=== PATIENT | female | born 1945 | race Caucasian/White ===

== ENCOUNTER 2017-06-23 08:41 | Inpatient (IN) | payer MEDICARE, OTHER ==
[2017-06-23] VITALS (9 sets, daily range): BP systolic 99–175; BP diastolic 59–93; PULSE 61–74; RESP 16–20; O2SAT 95–100
[~2017-06-23] VITALS: Ht 167.6 cm; Wt 74.8 kg
[~2017-06-23 08:41] MED LIST: ASPI-973 PO; CHOL5000 PO; CRAN400T4 PO; METO25TA6 PO; OMEP20CA11 PO; SIMV40TA5 PO; SPIR25TA3 PO
--- NOTE | 2017-06-23 08:46 | ED.REPORT ---
HPI-Abd Pain F 40 and Over Date of Service Jun 23, 2017 ED Provider: Antony Watters MD The pt is a 72 y/o female w/ a hx of multiple UTIs, HTN, hyperlipidemia, an appendectomy, and a partial hysterectomy presenting to the ED complaining of R flank pain onset 9 hours ago. She describes the pain as 10/10 severity, w/o radiation, and reports nothing helping to relieve the pain. She is also experiencing nausea and vomited earlier this morning. Denies fever, dysuria, or increased urinary frequency. The pt took an extra strength Tylenol at roughly 0415 this morning. She was sent here from urgent care. Nursing Notes Stated Complaint: POSS KIDNEY INFECTION Chief Complaint: R flank pain Nursing Notes Reviewed: Yes ([employer] not reconciled) Allergies: Coded Allergies: Penicillins (Verified Allergy, Severe, hives, 05/19/16) Sulfa (Sulfonamide Antibiotics) (Verified Allergy, Severe, hives, 05/19/16) erythromycin base (Verified Allergy, Severe, nausea and vomiting, 05/19/16) Scheduled Aspirin (Aspirin) 81 Mg Tablet 81 MG PO DAILY Metoprolol Tartrate (Metoprolol Tartrate) 25 Mg Tablet 25 MG PO BID Omeprazole (Omeprazole) 20 Mg Capsule.dr 20 MG PO DAILY Simvastatin (Simvastatin) 40 Mg Tablet 40 MG PO HS Spironolactone (Spironolactone) 25 Mg Tablet 25 MG PO DAILY Miscellaneous Medications Cholecalciferol (Vitamin D3) (Vitamin D3) 5,000 Unit Capsule 5,000 UNIT PO Cranberry Fruit (Cranberry) 400 Mg Tablet 400 MG PO General Time Seen by MD: 08:45 Chief Complaint Flank pain right Hx Obtained From: Patient Arrived By: Walk-in Sudden in Onset?: Yes Onset Occurred: 9 - 12 hours ago Symptom Duration: Since onset Progression since Onset: Gradually worsening Recent Healthcare: No recent hospitalization, Recent doctor visit Similar Sx Previous: No Past Medical History Past Medical History skin cancer Reports: Hyperlipidemia, Hypertension Past Surgical History Reports: Appendectomy, Hysterectomy (Partial ) Smoking History Unknown if Ever Smoker Social History Other Social History: Good social support Ambulatory Status Independent Review of Systems GI: Reports: Nausea, Vomiting Female: Reports: Flank pain (R sided ) Complete sys rev & neg: except as marked. Physical Exam Vital Signs Vital Signs (First) Date Time Temp Pulse Resp B/P Pulse Ox O2 Delivery O2 Flow Rate FiO2 06/23/17 08:43 36.8 74 18 175/93 100 Room Air Initial VS: Reviewed Head / Eyes: Atraumatic, Normocephalic, PERRL ENT: Mucous membranes moist, Conjunctiva normal, No scleral icterus Neck: Supple, Non-tender, Full range of motion Extremities: Vascular intact, Neuro intact, No swelling, No tenderness Skin: Warm, Dry, No cyanosis Neurologic: Alert, Oriented, Nonfocal Psychiatric: Mood/affect normal, Behavior normal, Normal thought content General/Constitutional: Awake, Alert Pt is in significant colicky pain Respiratory / Chest: Atraumatic, Breath sounds NL, Breath sounds = bilat Cardiovascular: Heart rate NL, Regular rhythm, Heart sounds NL Abdomen: Soft Back: Full range of motion Interpretation & Diagnostics PROCEDURE: CT KUB IMPRESSION: 1. Obstructive right nephrolithiasis at the ureterovesicular junction. This finding was discussed with Dr. Watters at 10:14 AM on 06/23/17. 2. No other acute intra-abdominal findings. The appendix is not visualized; however there are no ancillary findings to suggest acute appendicitis. 3. 5 mm groundglass nodule. [address] recommended. Dictated by: Claudette Prince M.D. on 06/23/2017 at 10:11 Approved by: Claudette Prince M.D. on 06/23/2017 at 10:18 Lab Results Interpretation Result Diagram: 06/23/17 0900 06/23/17 0900 Test 06/23/17 09:00 06/23/17 10:07 White Blood Count 9.6th/mm3 (3.8-10.1) Red Blood Count 4.11mil/mm3 (3.90-5.20) Hemoglobin 12.5g/dL (12.0-15.6) Hematocrit 36.7% (35.0-46.0) Mean Corpuscular Volume 89.3fL (81-100) Mean Corpuscular Hemoglobin 30.4pg (27.0-35.0) Mean Corpuscular Hemoglobin Concent 34.1% (32.0-37.0) Red Cell Distribution Width 12.9% (12.3-15.4) Platelet Count 251bil/L (150-400) Neutrophils (%) (Auto) 62.6% (40-74) Lymphocytes (%) (Auto) 30.2% (14-46) Monocytes (%) (Auto) 6.5% (4-12) Eosinophils (%) (Auto) 0.2% (0-5) Basophils (%) (Auto) 0.4% (0-3) Sodium Level 133mEq/L (134-144) Potassium Level 4.6mEq/L (3.5-5.2) Chloride Level 95mEq/L (97-108) Carbon Dioxide Level 20mmol/L (18-29) Blood Urea Nitrogen 17mg/dL (8-27) Creatinine 0.99mg/dL (0.57-1.00) Estimat Glomerular Filtration Rate 79mL/min (>59) Glucose Level 120mg/dL (60-99) Calcium Level 9.5mg/dL (8.5-10.1) Total Bilirubin 0.3mg/dL (0.0-1.2) Aspartate Amino Transf (AST/SGOT) 20U/L (0-50) Alanine Aminotransferase (ALT/SGPT) 15U/L (0-32) Alkaline Phosphatase 130U/L (25-165) Total Protein 8.3g/dL (6.4-8.4) Albumin 4.5g/dL (3.4-5.0) Hold Thorne Top Tube Received (Received) Urine Color Yellow (YELLOW) Urine Appearance Clear (CLEAR,HAZY) Urine pH 8.0 (5.0-8.0) Urine Specific [place] 1.021 (1.003-1.035) Urine Protein Negativemg/dL (NEG,TRACE) Urine Glucose (UA) Negativemg/dL (NEGATIVE) Urine Ketones Negativemg/dL (NEGATIVE) Urine Occult Blood Trace (NEGATIVE) Urine Nitrite Negative (NEGATIVE) Urine Bilirubin Negative (NEGATIVE) Urine Urobilinogen Normalmg/dL (NORMAL) Urine Leukocyte Esterase Trace (NEGATIVE) Urine RBC 3-10/hpf (0-2) Urine WBC 6-10/hpf (0-5) Urine Epithelial Cells Few/hpf (NONE-MOD) Urine Crystals None seen (NONE SEEN) Urine Bacteria Few/hpf (NONE-FEW) Urine Hyaline Casts None/lpf (NONE) Urine Granular Casts None seen (NONE SEEN) Urine Waxy Casts None seen (NONE SEEN) Urine Red Blood Cell Casts None seen (NONE SEEN) Urine White Blood Cell Casts None seen (NONE SEEN) Urine Mucus None seen (None Seen) Urine Trichomonas None seen (NONE SEEN) Urine Yeast None (NONE SEEN) Urinalysis Comment None Urine Culture Reflexed Indicated Lab Results Interpretation: CBC normal limits CMP normal UA positive blood Re-Eval/Medical Decision Med Decision/Clinical Course This is a pleasant 72-year-old female presents with acute onset of right flank pain that started last night. She does not have a previous history of kidney stones. The pain is been severe, intermittently colicky, it is so severe's to be covered by nausea and vomiting. This been no fever or dysuria. Urgent care but appeared in severe pain, so was referred over the [facility]. Urine dip was positive for blood. On arrival she is in significant discomfort, but her abdomen is soft and nontender without clinical evidence of peritonitis. He is placed received titrated pain medicines-she reports some relief but inadequate and associated with drowsiness with the Dilaudid. She underwent a CT KUB reveals a large stone in the right UVJ, with severe right hydronephrosis. She continued to have ongoing pain despite medication, received Toradol after renal function was normal, and had tamsulosin added. She is interested in hospitalization due to ongoing and persistent discomfort, as well as she is improved-she still complains of severe pain. Talked to the urologist wishes to give her more time we might be able to turn her around, which we did for several hours-for the patient remains persistently symptomatic and requests hospitalization. The plan is admission for pain control. The patient be maintained nothing by mouth after midnight as there is a possibility, but not definite plan for intervention tomorrow. Mirna Truong will consult. Source of Hx: Old records Re-Evaluation/Progress #1: Time of Eval: 10:44 Re-Evaluation/Progress Note: Rechecked pt and discussed CT results. Re-Evaluation/Progress #2: Time of Eval: 11:13 Re-Evaluation/Progress Note: Rechecked pt and discussed plan for further treatment. Re-Evaluation/Progress #3: Time of Eval: 12:19 Re-Evaluation/Progress Note: Pt rechecked. Informed pt of need for admission. Pt understands and agrees with plan for admission. All questions addressed. Consultation : Referral / Consult Name: Garett Sorensen MD Consulted With: Hospitalist Call Returned at: 13:12 Body Former: Will see patient, Agrees with eval, Agrees with plan, Accepts admit Differential Diagnosis: Positive: Urinary tract infection, Negative: Abdominal aortic aneurysm, Acute abdominal pain, Esophageal rupture , Pancreatitis, Pelvic inflam disease, Peptic ulcer disease, Postop complication Counseled Regarding: Diagnosis, Lab results, Need for admission Discharge & Departure Primary Impression: Kidney stone Additional Impression: Hydronephrosis of right kidney Disposition: ADMITTED TO HOSPITAL Discharge Condition All VS Reviewed: Yes Condition: Stable Referrals: Keegan Mcgee DO (PCP) Scribe Attestation Portions of this note were transcribed by Mat Montanez. I, Dr. Watters personally performed the history, physical exam and medical decision-making; I reviewed and confirmed the accuracy of the information in the transcribed note. copies to: Keegan Mcgee Matthew F MD Jun 23, 2017 08:46 Mat Montanez Jun 23, 2017 09:41
[2017-06-23] MEDS ORDERED: Ondansetron 2 mg/mL 2 mL Inj IVPUSH ONE (08:50)
[2017-06-23] MEDS: HYDROmorphone 0.5 mg/0.5 mL iSecure Syringe IVPUSH PRN ×3 (09:05→13:37)
[2017-06-23 09:17] LABS: BASOPHILS % (AUTO) 0.4 % (0-3); EOSINOPHILS % (AUTO) 0.2 % (0-5); MONOCYTES % (AUTO) 6.5 % (4-12); Mean Corpuscular Hemoglobin 30.4 pg (27.0-35.0); Mean Corpuscular Volume 89.3 fL (81-100); NEUTROPHILS % (AUTO) 62.6 % (40-74); Platelet Count 251 bil/L (150-400)
--- NOTE | 2017-06-23 10:19 | DRSVH ---
PROCEDURE: CT KUB ([id number]) INDICATIONS: R Flank pain TECHNIQUE: Noncontrast 5 mm thick sections acquired from the diaphragms to the symphysis. 5 mm thick coronal an d sagittal reformats were then performed. For radiation dose reduction, the following was used: aut omated exposure control, adjustment of mA and/or kV according to patient size. COMPARISON: None. FINDINGS: Image quality: Excellent. Lung bases: No acute airspace opacities. There is a 5 mm diameter groundglass nodule at the left lung base. Heart size is normal. Urinary system: Both kidneys are normal size. There is moderate right hydronephrosis and trace right perinephric fat stranding. Right ureter is markedly dilated throughout its course. A 3 mm in diamete r by 8mm long calculus is present at the right ureterovesicular junction (series 2, image 79). No lef t hydronephrosis, hydroureter, ureterolithiasis, or nephrolithiasis. Other solid organs: Liver and spleen are normal in size. Gallbladder is unremarkable. Pancreas is normal in contours. No adrenal nodules. Peritoneum and bowel: Unenhanced bowel loops demonstrate normal wall thickness and caliber. The appe ndix is not visualized; however there is no discrete right lower quadrant fluid or fat stranding to s uggest acute appendicitis. No free fluid or air. Nodes and vessels: No retroperitoneal or mesenteric adenopathy by size criteria. Aorta and inferior vena cava are normal in caliber. There are scattered atheromatous calcifications throughout the aor ta and iliac arteries bilaterally. Abdominal wall: No ventral hernias. Pelvis: No free pelvic fluid. No inguinal hernias or adenopathy. Bones: No suspicious bony lesions. No vertebral body compression fractures. A bone island is prese nt within the L5 vertebral body unchanged from the study from 2006. IMPRESSION: 1. Obstructive right nephrolithiasis at the ureterovesicular junction. This finding was discussed with Dr. Watters at 10:14 AM on 06/23/17. 2. No other acute intra-abdominal findings. The appendix is not visualized; however there are no anci llary findings to suggest acute appendicitis. 3. 5 mm groundglass nodule. [address] recommended. Dictated by: Claudette Prince M.D. on 06/23/2017 at 10:11 Approved by: Claudette Prince M.D. on 06/23/2017 at 10:18
[2017-06-23 10:54] LABS: APPEARANCE,URINE CLEAR (CLEAR,HAZY); COLOR,URINE YELLOW (YELLOW); OCCULT BLOOD,URINE TRACE (NEGATIVE); UROBILINOGEN,URINE NORMAL (NORMAL)
[2017-06-23] MEDS ORDERED: Alum-Mag Hydrox-Simeth 30 mL Suspension PO PRN (13:55)
[2017-06-23] MEDS ORDERED: Polyethylene Glycol (PEG) 17 Gm Powder PO PRN (13:55)
[2017-06-23] MEDS ORDERED: CYAN10008 PO (14:11)
[2017-06-23] MEDS ORDERED: LOSA25TA21 PO (14:11)
--- NOTE | 2017-06-23 15:00 | NUR ---
Assumed Care Assumed care of pt today; c/o tolerable pain in R flank area, no pain meds requested at this time. C/O nausea, IV Zofran offered to which pt states "nausea is resolving." A&Ox3, up to BR with 1 person asst as pt is not steady on her feet and c/o dizziness when up. Encouraged pt to use her call light for needs and to not get up without assistance, to which she agreed. VSS, RA, IV NS 100mls/hr started. Care ongoing.
[2017-06-23] MEDS: 0.9% Sodium Chloride 1,000 ML IV SCH ×2 (15:50→23:52)
--- NOTE | 2017-06-23 16:18 | PCM.HPMED ---
Subjective Date of Service Jun 23, 2017 Primary Provider: Admitting Physician: Garett Sorensen MD Primary Care Physician: Keegan Mcgee DO Attending Physician: Garett Sorensen MD Admit Status: From the Emergency Department, Full Admit, Admit to [facility] Team Chief Complaint: Right flank pain/10hrs History of Present Illness: 72 yo pleasant lady with PMH multiple UTIs, hypertension,HLD,h/o CAD s/p angioplasty 1991 presented to emergency room due to right flank pain of 9hrs. Patient states she woke up with sudden onset right-sided flank pain at 1 AM this morning. Pain is severe/worst pain she ever had , initially intermittent but now less and continuous . Nonradiating. Denies hematuria or dysuria. Denies fever. she also had nausea and 2 episodes of vomiting. ED course: in pain,BP 175/90, exam and labs unremarkable otherwise CT KUB Obstructive right nephrolithiasis at the ureterovesicular junction. ketorolac,zofran,dilaudid and tamsulin given Urology consulted by ED and plan for cystoscopy possibly tomorrow Review of Systems: Comprehensive review of systems performed, pertinent positives and negatives included in history of present illness Allergies Coded Allergies: Penicillins (Verified Allergy, Severe, hives, 05/19/16) Sulfa (Sulfonamide Antibiotics) (Verified Allergy, Severe, hives, 05/19/16) erythromycin base (Verified Allergy, Severe, nausea and vomiting, 05/19/16) Home Medications Aspirin (Aspirin) 81 Mg Tablet 81 MG PO DAILY Metoprolol Tartrate (Metoprolol Tartrate) 12.5 Mg PO hs Omeprazole (Omeprazole) 20 Mg Capsule.dr 20 MG PO DAILY Simvastatin (Simvastatin) 40 Mg Tablet 40 MG PO HS Spironolactone (Spironolactone) 25 Mg Tablet 12.5 MG PO DAILY Losartan 12.5 mg by mouth daily Recently started on vitamin B12 pills ,dose unknown Miscellaneous Medications Cholecalciferol (Vitamin D3) (Vitamin D3) 5,000 Unit Capsule 5,000 UNIT PO Cranberry Fruit (Cranberry) 400 Mg Tablet 400 MG PO PMH History of Coronary angioplasty 1991, no stent Multiple UTIs 1-2x/year Hypertension Hyperlipidemia Surgical History Partial Hysterectomy Appendectomy Diagnostic Laparotomy for infertility before her second child Family History No family history of kidney stones Social History Hx Alcohol Use: No Hx Substance Use: No Hx Tobacco Use: No Smoking Status: Unknown if Ever Smoker Exam Vital Signs Vital Sign - Last Date Time Temp Pulse Resp B/P Pulse Ox O2 Delivery O2 Flow Rate FiO2 06/23/17 14:52 64 06/23/17 14:30 36.9 20 137/59 99 Room Air Exam Gen. patient is lying comfortably in hospital bed HEENT: Head is normocephalic atraumatic, Pupils equal and reactive, extraocular movements intact, Lungs clear to auscultation bilaterally Heart regular rate and rhythm without murmurs gallops or rubs Abdomen soft nontender without hepatosplenomegaly, mild right flank tenderness Extremities pulses are present dorsalis pedis posterior tibialis and radial. tSkin is warm and dry there are no rashes, Psych alert and oriented to person place and time Neuro cranial nerves II through XII are grossly intact Lymph: There is no lymphadenopathy appreciated in the cervical supra infraclavicular regions : no ornelas Lab and Diagnostics Result Diagram: 06/23/17 0900 06/23/17 0900 X-Rays, CTs and MRIs PROCEDURE: CT KUB ([id number]) INDICATIONS: R Flank pain 1. Obstructive right nephrolithiasis at the ureterovesicular junction. This finding was discussed with Dr. Watters at 10:14 AM on 06/23/17. 2. No other acute intra-abdominal findings. The appendix is not visualized; however there are no ancillary findings to suggest acute appendicitis. 3. 5 mm groundglass nodule. [address] recommended. Dictated by: Claudette Prince M.D. on 06/23/2017 at 10:11 Assessment & Plan 72 yo pleasant lady with PMH multiple UTIs, hypertension,HLD,h/o CAD s/p angioplasty 1991 presented to emergency room due to right flank pain of 9hrs. # Right obstructive nephrolithiasis with hydronephrosis,poa,acute -pain control with Dilaudid, Zofran as needed for nausea -NS at 100ml/h -tamsulosin 0.4 mg daily -urology Dr Truong consulted by ED -npo after midnight - Patient able to take 2 flights of stairs without any chest pain or dyspnea.EKG and CXR ordered. # HTN,h/o CAD -Continue metoprolol, aspirin, losartan, spironolactone # HLD -Continue atorvastatin dvt ppx -hold hep sc ,pt preop full code Patient admitted under inpatient status with expected length of stay > 2 midnights for severity of present symptoms, complexities of treatment plan and risk for adverse events Pain Evaluation: Adequate Pain Control Resuscitation Status: CPR: Attempt Resuscitation copies to: Keegan Mcgee Melaku MD Jun 23, 2017 16:18
--- NOTE | 2017-06-23 17:16 | DRSVH ---
PROCEDURE: X-RAY CHEST ONE VIEW, PORTABLE ([id number]) INDICATIONS: preop TECHNIQUE: One view of the chest was acquired. COMPARISON: [facility], CT, CT KUB, 06/23/2017, 9:52. FINDINGS: Surgical changes and devices: None. Lungs and pleura: A subtle nodular radiopacity is present at the left lung base. It is unclear whethe r this represents the groundglass nodule visualized on the comparison CT from earlier today. The lung s are otherwise clear. Mediastinum: Mediastinal contours appear normal. Heart size is normal. Bones and chest wall: No suspicious bony lesions. Overlying soft tissues appear unremarkable. IMPRESSION: Left basilar nodule. Short interval followup recommended. Dictated by: Claudette Prince M.D. on 06/23/2017 at 17:13 Approved by: Claudette Prince M.D. on 06/23/2017 at 17:15
[2017-06-23] MEDS: Pantoprazole 20 mg ER24 Tablet PO SCH (17:30)
[2017-06-23] MEDS: Ondansetron 2 mg/mL 2 mL Inj IVPUSH PRN ×2 (19:37→20:41)
[2017-06-23] MEDS: HYDROmorphone 1 mg/mL Inj IVPUSH PRN ×2 (19:38→23:38)
--- NOTE | 2017-06-23 23:53 | NUR ---
Nausea Patient c/o nausea and vomiting after activity. Zofran administered, effective after second dose. Patient also c/o flank pain given K-pad and IV push Dilaudid, again effective after full mg dose. Spouse at bed side as patient visibly upset and uncomfortable. Care continues with intentional rounding.
[2017-06-24] VITALS (14 sets, daily range): BP systolic 94–166; BP diastolic 59–79; PULSE 65–105; RESP 12–18; O2SAT 96–100
[2017-06-24] MEDS: 0.9% Sodium Chloride 1,000 ML IV SCH ×2 (03:38→19:52)
[2017-06-24] MEDS: HYDROmorphone 1 mg/mL Inj IVPUSH PRN ×2 (03:39→07:31)
[2017-06-24 05:14] LABS: BASOPHILS % (AUTO) 0.2 % (0-3); EOSINOPHILS % (AUTO) 0.6 % (0-5); MONOCYTES % (AUTO) 8.4 % (4-12); Mean Corpuscular Hemoglobin 30.1 pg (27.0-35.0); Mean Corpuscular Volume 89.6 fL (81-100); NEUTROPHILS % (AUTO) 57.4 % (40-74); Platelet Count 199 bil/L (150-400)
[2017-06-24 05:38] LABS: Magnesium 1.9 mg/dL (1.6-2.6)
[2017-06-24] MEDS: Pantoprazole 20 mg ER24 Tablet PO SCH (06:45)
[2017-06-24] MEDS ORDERED: Ondansetron 2 mg/mL 2 mL Inj ONE (08:49)
[2017-06-24] MEDS ORDERED: Dexamethasone 4 mg/mL Inj ONE (08:49)
[2017-06-24] MEDS ORDERED: fentaNYL-PF 50 mCg/mL 2 mL Inj ONE ×2 (08:49→12:32)
[2017-06-24] MEDS ORDERED: Propofol 10,000 mCg/mL 20 mL Inj ONE (08:49)
--- NOTE | 2017-06-24 08:57 | PCM.HPSURG ---
Subjective Date of Service: Jun 24, 2017 Referring Provider: Admitting Physician: Garett Sorensen MD Primary Care Physician: Keegan Mcgee DO Attending Physician: Garett Sorensen MD Chief Complaint Ms Arnold is a 72 F with RIGHT flank pain. CT demonstrates RIGHT hydroureteronephrosis, moderate. - There is sand/debris at the RIGHT UVJ, not a discrete calculus She has never had urinary tract stones in the past to her knowledge. She notes that yesterday morning, around 1 AM, she had severe RIGHT lower quadrant pain. Presently, she has intermittently severe pain, controlled with pain medication. History of Present Illness Ms Arnold is a 72 F with RIGHT flank pain. CT demonstrates RIGHT hydroureteronephrosis, moderate. - There is sand/debris at the RIGHT UVJ, not a discrete calculus She has never had urinary tract stones in the past to her knowledge. She notes that yesterday morning, around 1 AM, she had severe RIGHT lower quadrant pain. Presently, she has intermittently severe pain, controlled with pain medication. Allergy Allergies: Coded Allergies: Penicillins (Verified Allergy, Severe, hives, 05/19/16) Sulfa (Sulfonamide Antibiotics) (Verified Allergy, Severe, hives, 05/19/16) erythromycin base (Verified Allergy, Severe, nausea and vomiting, 05/19/16) Social History Hx Alcohol Use: No Hx Substance Use: No Hx Tobacco Use: No PMH HEENT History History of ENT Problems?: No HEENT History: Denies:: Abnormal Airway Cataracts Difficult Intubation Dysphagia Hearing Problem Cardiovascular History History of Heart Problems?: Yes Cardiovascular History: Positive for:: Cardiac Surgery Hypertension Denies:: AICD Atrial Fibrillation Chest Pain Congestive Heart Failure Edema Heart Murmur Irregular Heartbeat Pacemaker Thrombophlebitis Valvular Heart Disease Other Cardiac History: HX: HYPERLIPIDEMIA Respiratory History of Respiratory Problem: No Respiratory History: Positive for:: Pneumonia Denies:: Asthma COPD Cough Hemoptysis Tuberculosis Neurological History Hx Neurologic Problems?: No Neurological History: Denies:: CVA Gastrointestinal History HX of GI Problems?: Yes Gastrointestinal History: Denies:: Cirrhosis Diverticulitis Gastroesphageal Reflux Hiatal Hernia Rectal Bleeding Genitourinary History Hx of Gu Problems?: Yes Genitourinary History: Positive for: Kidney Stones Urinary Tract Infection Denies: HX of Hemodialysis Female/Male History Reproductive History Female: Denies: Currently ? Endometriosis Pelvic Inflammatory DX Problems with Breasts? Skin History Skin History: Positive for:: History Skin Disorders? (skin cancer) Musculoskeletal History Hx Musculoskeletal Problems?: Yes Musculoskeletal History: Denies:: Back Injury Joint Replacement Musculoskeletal Trauma Psycho Social History Hx of Psycho/Social Problems?: No Psycho Social History: Denies:: Anxiety Hx Depression Other History Hx Any Other Health Problems?: Yes Other History: Positive for:: Cancer (SKIN) Hospitalization (SURGERY) Denies:: Endocrine Disease Thyroid Disease Diabetes: No Social History Hx Alcohol Use: NoHx Substance Use: NoHx Tobacco Use: No Smoking Status: Unknown if Ever Smoker H&P Surgical Exam Exam General: Alert, Cooperative, No Acute Distress Lungs: Normal Air Movement Abdomen: Soft, Other (TTP along the RIGHT abdomen) Extremities: Warm Neuro: Cranial Nerves 2-12 nl Assessment & Plan Assessment RIGHT hydroureteronephrosis and pain Plan: We reviewed her CT findings - I tab diagrams of the RIGHT kidney, ureter, bladder, urethra, and demonstrated the location of the relevant findings - She appears to have tiny stones/sediment in the distal ureter We discussed options - Surveillance - Ureterscopy (URS), stent We discussed the nature of ureteral stent as well as details of attendant risks and bother from the stent We reviewed potential benefits of the stent in terms of pain We discussed URS, nature of, risks in detail. Dispo: - Cysto, RIGHT URS, ureteral stent placement Resuscitation Status: CPR: Attempt Resuscitation Katiana Truong MD Jun 24, 2017 08:57 Katiana Truong MD Jun 24, 2017 08:57
--- NOTE | 2017-06-24 10:30 | PCM.HPANE ---
Patient Data Surgeon Admitting Provider:Garett Sorensen MD Attending Provider:Garett Sorensen MD Primary Care Physician:Keegan Mcgee DO Other Provider: Reason for Visit Poss Kidney Infection POSS KIDNEY INFECTION Ht/WT & BMI Height (Feet): 5 Height (Inches): 6.00 Weight (Kilograms): 74.800 Body Mass Index 26.50 Allergies Coded Allergies: Penicillins (Verified Allergy, Severe, hives, 05/19/16) Sulfa (Sulfonamide Antibiotics) (Verified Allergy, Severe, hives, 05/19/16) erythromycin base (Verified Allergy, Severe, nausea and vomiting, 05/19/16) Past Anesthesia History Anesthesia History: Denies:: Abnormal Airway, Anesthesia Reactions, Difficult Intubation, Fam Anesthesia Reaction, Fam Malignant Hypertherm, Malignant Hyperthermia Diabetes History Hx Diabetes?: No MRSA MRSA: No Medications Blood Thinner: Aspirin Reported Medications Losartan Potassium 25 Mg Xtvjyg95.5 Mg PO QAM 06/23/17 Cyanocobalamin (Vitamin B-12) (Vitamin B-12)1,000 Mcg Tablet1,000 Mcg PO QAM 06/23/17 Cholecalciferol (Vitamin D3) (Vitamin D3)5,000 Unit Capsule5,000 Unit PO QAM 07/05/15 Spironolactone 25 Mg Sgkgji78.5 Mg PO QAM #30 TABLET Ref 0 07/05/15 Simvastatin 40 Mg Amyibb59 Mg PO HS 30 Days Ref 0 07/05/15 Omeprazole 20 Mg Capsule.dr20 Mg PO QAM Ref 0 07/05/15 Metoprolol Tartrate 25 Mg Pumkcw42.5 Mg PO HS 30 Days Ref 0 07/05/15 Aspirin 81 Mg Dbifuv48 Mg PO QAM Ref 0 07/05/15 Discontinued Reported Medications Cranberry Fruit (Cranberry)400 Mg Ltxzqj201 Mg PO 07/06/15 History History of ENT Problems?: No HEENT History: Denies:: Abnormal Airway Cataracts Difficult Intubation Dysphagia Hearing Problem Denture Type: Full- Upper Partial- Lower Teeth Condition: Within Normal Limits Hx of Heart Problems?: Yes Cardiovascular History: Positive for:: Cardiac Surgery Hypertension Denies:: AICD Atrial Fibrillation Chest Pain Congestive Heart Failure Edema Heart Murmur Irregular Heartbeat Pacemaker Thrombophlebitis Valvular Heart Disease Other Cardiac History: HX: HYPERLIPIDEMIA Hx of Respiratory Problem?: No Respiratory History: Positive for:: Pneumonia Denies:: Asthma COPD Cough Hemoptysis Tuberculosis Hx Neurologic Problems?: No Neurological History: Denies:: CVA Hx of GI Problems?: Yes Hx of Problems?: Yes Genitourinary History: Positive for:: Kidney Stones Urinary Tract Infection Denies:: HX of Hemodialysis HX of Peritoneal Dialysis: No Female Hx: Denies:: Currently Endometriosis Pelvic Inflammatory Problems with Breasts? Skin History: Positive for:: History Skin Disorders? (skin cancer) Hx Musculoskeletal Problems?: Yes Musculoskeletal History: Denies:: Back Injury Joint Replacement Musculoskeletal Trauma Hx of Psycho/Social Problems?: No Psycho Social History: Denies:: Anxiety Hx Depression Hx Surgeries?: Yes ( EXPL LAP HYSTERECTOMY, TONSILLECTOMY, ANGIOPLASTY) Hx Any Other Health Problems?: Yes Other History: Positive for:: Cancer (SKIN) Hospitalization (SURGERY) Denies:: Endocrine Disease Thyroid Disease History Blood Transfusions: Positive for:: Accept Blood Products? Blood Transfusions (X 1) Denies:: Blood Transfuse Reaction Hx Diabetes: No Hx Alcohol Use: NoHx Substance Use: No Smoking Status: Unknown if Ever Smoker Have You Smoked inLast 12 mo: No Stop/Bang Risk Assessment Category Category 1A: Patient has history of documented sleep apnea, and HAS NOT received any narcotic, sedative or anesthesia administration during this stay. Category 1B: Patient has history of documented sleep apnea, and HAS received any narcotic , sedative or anesthesia administration during this stay Category 2: Patient has SUSPECTED Obstructive Sleep Apnea, and HAS received any narcotic , sedative or anesthesia administration during this stay. Category 3: Patient has SUSPECTED Obstructive Sleep Apnea and HAS NOT received narcotic, sedative or anesthesia administration during this stay. Category 4: Outpatient in Procedural Areas with known sleep apnea or who screen positive for High Risk via the STOP/BANG questionnaire. Exam Exam Vital Signs Vital Signs Date Time Temp Pulse Resp B/P Pulse Ox O2 Delivery O2 Flow Rate FiO2 06/24/17 09:53 65 06/24/17 09:21 36.6 67 16 113/64 98 Room Air 06/24/17 04:43 36.7 71 17 152/61 100 Room Air General Appearance: Alert, Oriented X3, Cooperative, Mild Distress HEENT/AIRWAY: MP 2 Lungs: Normal Air Movement Heart: Regular Rate/Rhythm Meds/Labs/Diagnostics Admission Meds Current Medications Ketorolac Tromethamine (Toradol Inj) 30 mg ONCE ONCE IVPUSH Last administered on 06/23/17 11:02; Start 06/23/17 at 10:50; Stop 06/23/17 at 10:51; Status DC Tamsulosin HCl 0.4 mg 0.4 mg ONCE ONCE PO Last administered on 06/23/17 11:02 ; Start 06/23/17 at 10:50; Stop 06/23/17 at 10:51; Status DC Sodium Chloride (Normal Saline) 1,000 ml @ 100 mls/hr Q10H IV Last administered on 06/24/17 03:38; Start 06/23/17 at 13:52 Tamsulosin HCl (Flomax) 0.4 mg DAILY PO Last administered on 06/24/17 08:11; Start 06/24/17 at 08:30 Aspirin (Ecotrin) 81 mg DAILY PO Last administered on 06/24/17 08:10; Start at 08:30 Metoprolol Tartrate (Lopressor) 12.5 mg HS PO Last administered on 06/23/17 19 :38; Start 06/23/17 at 21:00 Spironolactone (Aldactone) 12.5 mg DAILY PO Last administered on 06/24/17 08: 11; Start 06/24/17 at 08:30 Cholecalciferol (Vitamin D3) 5,000 unit DAILY PO Last administered on 17:32; Start 06/23/17 at 16:30 Cyanocobalamin (Vitamin B12) 1,000 mcg DAILY PO Last administered on 06/23/17 17:30; Start 06/23/17 at 16:31 Pantoprazole (Protonix) 20 mg 0630 PO Last administered on 06/24/17 06:45; Start 06/23/17 at 16:31 Atorvastatin Calcium (Lipitor) 20 mg DAILY PO Last administered on 06/24/17 08 :09; Start 06/24/17 at 08:30 Labs Test 06/23/17 09:00 06/23/17 10:07 06/24/17 04:53 Hold Thorne Top Tube Received (Received) Urine Color Yellow (YELLOW) Urine Appearance Clear (CLEAR,HAZY) Urine pH 8.0 (5.0-8.0) Urine Specific [place] 1.021 (1.003-1.035) Urine Protein Negativemg/dL (NEG,TRACE) Urine Glucose (UA) Negativemg/dL (NEGATIVE) Urine Ketones Negativemg/dL (NEGATIVE) Urine Occult Blood Trace (NEGATIVE) Urine Nitrite Negative (NEGATIVE) Urine Bilirubin Negative (NEGATIVE) Urine Urobilinogen Normalmg/dL (NORMAL) Urine Leukocyte Esterase Trace (NEGATIVE) Urine RBC 3-10/hpf (0-2) Urine WBC 6-10/hpf (0-5) Urine Epithelial Cells Few/hpf (NONE-MOD) Urine Crystals None seen (NONE SEEN) Urine Bacteria Few/hpf (NONE-FEW) Urine Hyaline Casts None/lpf (NONE) Urine Granular Casts None seen (NONE SEEN) Urine Waxy Casts None seen (NONE SEEN) Urine Red Blood Cell Casts None seen (NONE SEEN) Urine White Blood Cell Casts None seen (NONE SEEN) Urine Mucus None seen (None Seen) Urine Trichomonas None seen (NONE SEEN) Urine Yeast None (NONE SEEN) Urinalysis Comment None Urine Culture Reflexed Indicated White Blood Count 8.5th/mm3 (3.8-10.1) Red Blood Count 3.45mil/mm3 (3.90-5.20) Hemoglobin 10.4g/dL (12.0-15.6) Hematocrit 30.9% (35.0-46.0) Mean Corpuscular Volume 89.6fL (81-100) Mean Corpuscular Hemoglobin 30.1pg (27.0-35.0) Mean Corpuscular Hemoglobin Concent 33.7% (32.0-37.0) Red Cell Distribution Width 12.9% (12.3-15.4) Platelet Count 199bil/L (150-400) Neutrophils (%) (Auto) 57.4% (40-74) Lymphocytes (%) (Auto) 33.0% (14-46) Monocytes (%) (Auto) 8.4% (4-12) Eosinophils (%) (Auto) 0.6% (0-5) Basophils (%) (Auto) 0.2% (0-3) Sodium Level 136mEq/L (134-144) Potassium Level 4.5mEq/L (3.5-5.2) Chloride Level 101mEq/L (97-108) Carbon Dioxide Level 21mmol/L (18-29) Blood Urea Nitrogen 18mg/dL (8-27) Creatinine 1.17mg/dL (0.57-1.00) Estimat Glomerular Filtration Rate 65mL/min (>59) Glucose Level 115mg/dL (60-99) Calcium Level 8.5mg/dL (8.5-10.1) Magnesium Level 1.9mg/dL (1.6-2.6) Total Bilirubin 0.4mg/dL (0.0-1.2) Aspartate Amino Transf (AST/SGOT) 17U/L (0-50) Alanine Aminotransferase (ALT/SGPT) 11U/L (0-32) Alkaline Phosphatase 106U/L (25-165) Total Protein 6.3g/dL (6.4-8.4) Albumin 3.7g/dL (3.4-5.0) Plan Impression Patient chart reviewed, patient interviewed and anesthestic plan with risks, benefits, and alternatives discussed, and informed consent obtained. NPO per Anesth. Guidelines: Yes ASA Physical Status: ASA2 Mod Systemic Disease Anesthetic Plan: GA Bene/Risks/Altern/Consents: Yes HP Complete Prior to Induction: Yes Jorgito Blount MD Jun 24, 2017 10:30
[2017-06-24] MEDS: Lactated Ringer's 1,000 ML IV SCH ×2 (11:26→11:52)
[2017-06-24] MEDS ORDERED: levoFLOXacin 500 mg/100 mL D5W Premix IV ONE (11:45)
[2017-06-24] MEDS ORDERED: Lactated Ringer's 500 ML IV PRN (11:52)
[2017-06-24] MEDS ORDERED: HYDROmorphone 1 mg/mL Inj IVPUSH PRN (11:55)
[2017-06-24] MEDS ORDERED: Phenylephrine 10,000 mCg/mL Inj IVPUSH PRN (11:55)
[2017-06-24] MEDS ORDERED: Dexamethasone 4 mg/mL Inj IVPUSH PRN (11:55)
[2017-06-24] MEDS ORDERED: Ondansetron 2 mg/mL 2 mL Inj IVPUSH PRN (11:55)
[2017-06-24] MEDS ORDERED: fentaNYL-PF 50 mCg/mL 2 mL Inj IVPUSH PRN (11:55)
[2017-06-24] MEDS ORDERED: EPHEDrine Sulfate 50 mg/mL Inj IVPUSH PRN (11:55)
--- NOTE | 2017-06-24 12:02 | PCM.PNMED ---
Subjective Date of Service Jun 24, 2017 Subjective Continues to have flank pain. Had severe episode of pain overnight. Going for cystoscopy today. Exam Vital Signs Vital Sign - Last Date Time Temp Pulse Resp B/P Pulse Ox O2 Delivery O2 Flow Rate FiO2 06/24/17 09:53 65 06/24/17 09:21 36.6 16 113/64 98 Room Air Intake and Output 06/23/17 06/23/17 06/24/17 Cumulative From/Thru 15:00 23:00 07:00 06/23/17 08:43 - 06/24/17 06:52 Intake Total 800 ml 1758 ml 2558 ml Output Total 100 ml 400 ml 500 ml Balance 700 ml 1358 ml 2058 ml Intake Oral 800 ml 500 ml 1300 ml IV Total 1258 ml 1258 ml Output Urine Total 100 ml 300 ml 400 ml Emesis 100 ml 100 ml # Bowel Movements 0 0 Exam Gen. patient is lying comfortably in hospital bed HEENT: Head is normocephalic atraumatic, Pupils equal and reactive, extraocular movements intact, Lungs clear to auscultation bilaterally Heart regular rate and rhythm without murmurs gallops or rubs Abdomen soft nontender without hepatosplenomegaly, mild right flank tenderness Extremities pulses are present dorsalis pedis posterior tibialis and radial. tSkin is warm and dry there are no rashes, Psych alert and oriented to person place and time Neuro cranial nerves II through XII are grossly intact Lymph: There is no lymphadenopathy appreciated in the cervical supra infraclavicular regions : no ornelas IVs and Medications Medications Reviewed: Medications were reviewed in detail Lab and Diagnostics Result Diagram: 06/24/17 0453 06/24/17 0453 X-Rays, CTs and MRIs PROCEDURE: CT KUB ([id number]) INDICATIONS: R Flank pain 1. Obstructive right nephrolithiasis at the ureterovesicular junction. This finding was discussed with Dr. Watters at 10:14 AM on 06/23/17. 2. No other acute intra-abdominal findings. The appendix is not visualized; however there are no ancillary findings to suggest acute appendicitis. 3. 5 mm groundglass nodule. [address] recommended. Dictated by: Claudette Prince M.D. on 06/23/2017 at 10:11 Assessment & Plan 72 yo pleasant lady with PMH multiple UTIs, hypertension,HLD,h/o CAD s/p angioplasty 1991 presented to emergency room due to right flank pain of 9hrs. # Right obstructive nephrolithiasis with hydronephrosis,poa,acute -pain control with Dilaudid, Zofran as needed for nausea -NS at 100ml/h -tamsulosin 0.4 mg daily -urology Dr Truong consulted by ED -npo after midnight - Patient able to take 2 flights of stairs without any chest pain or dyspnea.EKG and CXR unremarkable. Patient medically optimized for procedure # Incidental left basilar lung nodule -Follow-up of patient # HTN,h/o CAD -Continue metoprolol, aspirin, losartan, spironolactone # HLD -Continue atorvastatin dvt ppx -hold hep sc full code high risk medications: Dilaudid IV Patient admitted under inpatient status with expected length of stay > 2 midnights for severity of present symptoms, complexities of treatment plan and risk for adverse events Disposition: Possible discharge tomorrow Resuscitation Status: CPR: Attempt Resuscitation Garett Sorensen MD Jun 24, 2017 12:02
--- NOTE | 2017-06-24 13:39 | PCM.ANEP1 ---
Post Anesthesia PACU Phase 1 Assessment Vital Signs Vital Signs Date Time Temp Pulse Resp B/P Pulse Ox O2 Delivery O2 Flow Rate FiO2 06/24/17 13:15 74 12 149/59 98 Room Air 06/24/17 13:05 75 14 144/60 96 Room Air 06/24/17 12:55 36.7 75 16 148/63 97 Room Air 06/24/17 12:40 80 14 147/67 97 Room Air 06/24/17 12:35 84 16 94/79 99 Room Air 06/24/17 12:30 85 17 144/74 99 Room Air 06/24/17 12:25 105 12 153/78 100 Simple Mask 8 06/24/17 12:23 36.1 80 15 159/67 100 Simple Mask 8 06/24/17 09:53 65 06/24/17 09:21 36.6 67 16 113/64 98 Room Air Level of Alertness: Awake, talking LINDSEY's with Equal Strength: Yes Pain: No (Slight burning pain) Pain Scale Score: 5 Nausea or Vomiting: No CV Function & Hydration Stable: Yes Airway Device: None Oxygen Delivery: Room Air Lungs: Normal Air Movement PACU Phase 2 Assessment Complications: No Follow up Care: N/A Patient Instructions Provided: N/A Jorgito Blount MD Jun 24, 2017 13:39
--- NOTE | 2017-06-24 15:12 | NUR ---
Shift: Pt s/p cystoscopy, denies any flank pain, c/o minor burning with urination, voiding adequately post op. VSS, tele SR 60s-70s, RA O2 sats 97%. Tolerating PO intake. Up with SBA, no gait instability noted, independent with bed mobility. at bedside, updated on plan of care, care ongoing.
--- NOTE | 2017-06-24 16:12 | DRSVH ---
PROCEDURE: X-RAY RETROGRADE UROGRAPHY INDICATIONS: RIGHT CYSTO, STONE REMOVAL, STENT PLACEMENT TECHNIQUE: 2.intra-operative images acquired by the Urology service. COMPARISON: [facility], CT, CT KUB, 06/23/2017, 9:52. FINDINGS: Exam limited to submitted images. Within these limits, partial opacification of the dista l right ureter demonstrates no definite intraluminal filling defects and course and caliber of the ur eter is grossly normal. No extravasation of contrast media. Ureteral stent placed. IMPRESSION: Grossly normal appearance of visualized portions of the distal right ureter and ureteral stent placed. Dictated by: Manan ABIN Interpreted: Claudette Prince MD on 06/24/2017 at 15:34 Approved by: Claudette Prince M.D. on 06/24/2017 at 16:11
--- NOTE | 2017-06-24 20:23 | OP ---
[address] [address] OPERATIVE REPORT PATIENT: CLARE ADDISON : 1945 MR#: [id number] ADMIT: 06/23/2017 JOB ID: [id number] DATE OF SURGERY: 06/24/2017 SURGEON: Katiana Truong MD PREOPERATIVE DIAGNOSIS(ES): Right distal ureteral stone. POSTOPERATIVE DIAGNOSIS(ES): Right distal ureteral stone. PROCEDURE PERFORMED: 1. Cystoscopy and right retrograde pyelogram. 2. Right ureteroscopy and stone basketing. 3. Right stent placement. SHARE HOLDER: None. FINDINGS: Innumerable tiny stones at the right distal ureter. ANESTHESIA: General. ESTIMATED BLOOD LOSS: 1 mL. DRAINS: 6 x 22 right double-J ureteral stent. COMPLICATIONS: None. CONDITION: Stable. INDICATION FOR PROCEDURE: The patient is a 72-year-old woman with a CT finding of stone debris/sand. She has moderate hydroureteronephrosis and severe pain. She was counseled as to her options and she wished to move forward with intervention. DESCRIPTION OF PROCEDURE: After informed consent was obtained, the patient was taken to the operating room. A time-out was performed identifying correct patient, surgical site, procedure. General anesthesia was induced. She was given intravenous antibiotics prior to the start of the procedure. She was placed in the lithotomy position and all pressure points were identified and appropriately padded. Her genitals were then prepped and draped in usual sterile fashion. Her urethra was cannulated with a 22-Prydeinig rigid cystoscope. There was seen a tiny stone emanating from the right ureteral orifice. It was cannulated with a 5-Prydeinig, open-ended Pollack catheter. Retrograde pyelogram was performed. There appeared to be moderate hydroureter. Two Sensor tip wires were then navigated to the renal pelvis as seen under fluoroscopy. A semi-rigid ureteroscope was then used to navigate the distal ureter. There were found innumerable tiny stones. These were all basketed with several passes of the Zero tip basket. All of the stones had been removed through countless efforts of stone basketing. The remaining ureter appeared normal. The ureteroscope was then brought down under direct vision. One of the remaining Sensor tip wires was then backloaded into the cystoscope. A 6 x 22 right double-J ureteral stent was loaded over it and the base into the renal pelvis as seen under fluoroscopy. The wire was then removed leaving a nice coil in the patient's bladder. The patient's bladder was then drained. She was then reversed from general anesthesia and taken to PACU in good and stable condition. SAI
[2017-06-25 00:13] VITALS: BP 124/72; PULSE 77; RESP 17; O2SAT 97
--- NOTE | 2017-06-25 03:54 | NUR ---
Urine Pt reports feeling great s/p cystoscopy. Denies pain or discomfort. urine with trace of blood noted pink in color and pt states "i am not worry, i was told it is to be expected". No discomfort or concerns. No SOB. sleeping soundly in this shift so far.
[2017-06-25 04:45] VITALS: BP 144/78; PULSE 72; RESP 17; O2SAT 96
[2017-06-25] MEDS: 0.9% Sodium Chloride 1,000 ML IV SCH (05:52)
[2017-06-25] MEDS: Pantoprazole 20 mg ER24 Tablet PO SCH (06:03)
[2017-06-25 07:43] LABS: BASOPHILS % (AUTO) 0.1 % (0-3); EOSINOPHILS % (AUTO) 0 % (0-5); MONOCYTES % (AUTO) 8.1 % (4-12); Mean Corpuscular Hemoglobin 30.1 pg (27.0-35.0); Mean Corpuscular Volume 90.6 fL (81-100); NEUTROPHILS % (AUTO) 72.2 % (40-74); Platelet Count 224 bil/L (150-400)
[2017-06-25 08:08] VITALS: BP 134/63; PULSE 71; RESP 18; O2SAT 97
[2017-06-25 08:09] LABS: Magnesium 1.9 mg/dL (1.6-2.6)
--- NOTE | 2017-06-25 08:51 | PCM.DIMED ---
Discharge Instructions Date of Service Jun 25, 2017 Dates of Hospitalization Jun 23, 2017 at 13:34 Discharge Diagnosis Discharge Diagnosis # Right obstructive nephrolithiasis with hydronephrosis,poa,acute Status post Cystoscopy and right retrograde pyelogram.Right ureteroscopy and stone basketing. Right stent placement On 06/24 # Incidental left basilar lung nodule # HTN,h/o CAD # HLD Diet Discharge Diet: No restrictions Activity Discharge Activity: No restrictions Call your provider Call your provider for: Fever or Chills, Shortness of breath, Bleeding, Chest pain, Vomitting, Excessive diarrhea, Weakness (unilateral) Patient Instructions Patient Instructions You were hospitalized due to Right obstructive nephrolithiasis with hydronephrosis and underwent successful Cystoscopy and right retrograde pyelogram,Right ureteroscopy and stone basketing and Right stent placement on 06/24. Please follow-up with in 1 week . Please drink plenty of water. Follow-up Provider: Keegan Mcgee DO Follow-up with PCP in: 2 weeks Provider: Katiana Truogn MD Follow-up in: 1 week Garett Sorensen MD Jun 25, 2017 08:51
--- NOTE | 2017-06-25 09:01 | NUR ---
Social Work: Initial Assessment/Discharge D: EMR reviewed. Please see Initial Assessment linked to this note for more information. Pt is an 72 y/o female admitted [place] with a readmit risk score of 1 for possible kidney infection per H&P. Pt's insurance is Medicare and [email or web address]. PCP is Keegan Mcgee MD. SW met with pt at bedside to conduct initial assessment. Pt was alert and oriented x3. SW explained role and wrote phone number on white board. SW provided [facility] Discharge Planning Checklist and encouraged pt to contact SW for any discharge planning questions. Pt has active d/c orders today. No MD orders received. Pt lives at home with her spouse in [place]. Pt is independent with all ADLs and self-care. Pt ambulates independently and does not use any DME. Pt drives. Daughter will provide transport when pt is ready for discharge. Pt declined DPOA/advanced directive ppw. A: Pt who is independent at baseline and has the capacity for self-care. P: Pt anticipated to discharge home today with daughter via POV. No SW needs identified, no MD orders received. CECE [facility] Addendum: 06/25/17 at 0903 by DAR GUADALUPE SS Amended: Links added.
--- NOTE | 2017-06-25 10:50 | NUR ---
discharged home with family, has f/u appt scheduled with Dr Truong on 07/03, no new Rx or changes in meds, pt denies pain, only when she voids and that is tolerable. She is eating/drinking well, ambulating independently
--- NOTE | 2017-06-25 13:17 | PCM.DC.MED ---
Discharge Summary Date of Service Jun 25, 2017 Dates of Hospitalization Date of Hospital Admission Jun 23, 2017 at 13:34 Date of Discharge: Jun 25, 2017 Providers: Admitting Physician: Garett Sorensen MD Primary Care Physician: Keegan Mcgee DO Attending Physician: Garett Sorensen MD Diagnosis at Time of Discharge Diagnosis at Time of Discharge # Right obstructive nephrolithiasis with hydronephrosis,poa,acute Status post Cystoscopy and right retrograde pyelogram.Right ureteroscopy and stone basketing. Right stent placement On 06/24 # Incidental left basilar lung nodule # HTN,h/o CAD # HLD Consultations urology Dr Truong Procedures XRay, CTs & MRIs PROCEDURE: CT KUB ([id number]) INDICATIONS: R Flank pain 1. Obstructive right nephrolithiasis at the ureterovesicular junction. This finding was discussed with Dr. Watters at 10:14 AM on 06/23/17. 2. No other acute intra-abdominal findings. The appendix is not visualized; however there are no ancillary findings to suggest acute appendicitis. 3. 5 mm groundglass nodule. [address] recommended. Dictated by: Claudette Prince M.D. on 06/23/2017 at 10:11 Invasive Procedures DATE OF SURGERY: 06/24/2017 SURGEON: Katiana Truong MD PREOPERATIVE DIAGNOSIS(ES): Right distal ureteral stone. POSTOPERATIVE DIAGNOSIS(ES): Right distal ureteral stone. PROCEDURE PERFORMED: 1. Cystoscopy and right retrograde pyelogram. 2. Right ureteroscopy and stone basketing. 3. Right stent placement. SURFACE PLATE INSPECTOR: None. FINDINGS: Innumerable tiny stones at the right distal ureter. ANESTHESIA: General. ESTIMATED BLOOD LOSS: 1 mL. DRAINS: 6 x 22 right double-J ureteral stent. COMPLICATIONS: None. CONDITION: Stable. Brief History per HPI 72 yo pleasant lady with PMH multiple UTIs, hypertension,HLD,h/o CAD s/p angioplasty 1991 presented to emergency room due to right flank pain of 9hrs. Patient states she woke up with sudden onset right-sided flank pain at 1 AM this morning. Pain is severe/worst pain she ever had , initially intermittent but now less and continuous . Nonradiating. Denies hematuria or dysuria. Denies fever. she also had nausea and 2 episodes of vomiting. ED course: in pain,BP 175/90, exam and labs unremarkable otherwise CT KUB Obstructive right nephrolithiasis at the ureterovesicular junction. ketorolac,zofran,dilaudid and tamsulin given Urology consulted by ED and plan for cystoscopy possibly tomorrow Hospital Course 72 yo pleasant lady with PMH multiple UTIs, hypertension,HLD,h/o CAD s/p angioplasty 1991 presented to emergency room due to right flank pain of 9hrs. # Right obstructive nephrolithiasis with hydronephrosis,poa,acute -Status post Cystoscopy and right retrograde pyelogram.Right ureteroscopy and stone basketing. Right stent placement On 06/24 -Treated with pain control with Dilaudid, Zofran as needed for nausea -Treated with NS at 100ml/h -Treated with tamsulosin 0.4 mg daily -urology Dr Truong Pain resolved. Discharged home. Follow-up with urology in 1 week # Incidental left basilar lung nodule -Follow-up of patient # HTN,h/o CAD -Continue metoprolol, aspirin, losartan, spironolactone # HLD -Continue atorvastatin dvt ppx -hold hep sc full code high risk medications: Dilaudid IV Patient admitted under inpatient status with expected length of stay > 2 midnights for severity of present symptoms, complexities of treatment plan and risk for adverse events Disposition: discharge home Condition on discharge stable Exam Vital Signs (Last) Date Time Temp Pulse Resp B/P Pulse Ox O2 Delivery O2 Flow Rate FiO2 06/25/17 08:08 36.6 71 18 134/63 97 Room Air 06/24/17 12:25 8 Exam Gen. patient is lying comfortably in hospital bed HEENT: Head is normocephalic atraumatic, Pupils equal and reactive, extraocular movements intact, Lungs clear to auscultation bilaterally Heart regular rate and rhythm without murmurs gallops or rubs Abdomen soft nontender without hepatosplenomegaly, mild right flank tenderness Extremities pulses are present dorsalis pedis posterior tibialis and radial. tSkin is warm and dry there are no rashes, Psych alert and oriented to person place and time Neuro cranial nerves II through XII are grossly intact Lymph: There is no lymphadenopathy appreciated in the cervical supra infraclavicular regions : no ornelas Test 06/23/17 09:00 06/23/17 10:07 06/24/17 13:01 06/25/17 07:30 Hold Thorne Top Tube Received (Received) Urine Color Yellow (YELLOW) Urine Appearance Clear (CLEAR,HAZY) Urine pH 8.0 (5.0-8.0) Urine Specific [place] 1.021 (1.003-1.035) Urine Protein Negativemg/dL (NEG,TRACE) Urine Glucose (UA) Negativemg/dL (NEGATIVE) Urine Ketones Negativemg/dL (NEGATIVE) Urine Occult Blood Trace (NEGATIVE) Urine Nitrite Negative (NEGATIVE) Urine Bilirubin Negative (NEGATIVE) Urine Urobilinogen Normalmg/dL (NORMAL) Urine Leukocyte Esterase Trace (NEGATIVE) Urine RBC 3-10/hpf (0-2) Urine WBC 6-10/hpf (0-5) Urine Epithelial Cells Few/hpf (NONE-MOD) Urine Crystals None seen (NONE SEEN) Urine Bacteria Few/hpf (NONE-FEW) Urine Hyaline Casts None/lpf (NONE) Urine Granular Casts None seen (NONE SEEN) Urine Waxy Casts None seen (NONE SEEN) Urine Red Blood Cell Casts None seen (NONE SEEN) Urine White Blood Cell Casts None seen (NONE SEEN) Urine Mucus None seen (None Seen) Urine Trichomonas None seen (NONE SEEN) Urine Yeast None (NONE SEEN) Urinalysis Comment None Urine Culture Reflexed Indicated White Blood Count 10.7th/mm3 (3.8-10.1) Red Blood Count 3.62mil/mm3 (3.90-5.20) Hemoglobin 10.9g/dL (12.0-15.6) Hematocrit 32.8% (35.0-46.0) Mean Corpuscular Volume 90.6fL (81-100) Mean Corpuscular Hemoglobin 30.1pg (27.0-35.0) Mean Corpuscular Hemoglobin Concent 33.2% (32.0-37.0) Red Cell Distribution Width 13.3% (12.3-15.4) Platelet Count 224bil/L (150-400) Neutrophils (%) (Auto) 72.2% (40-74) Lymphocytes (%) (Auto) 19.4% (14-46) Monocytes (%) (Auto) 8.1% (4-12) Eosinophils (%) (Auto) 0% (0-5) Basophils (%) (Auto) 0.1% (0-3) Sodium Level 140mEq/L (134-144) Potassium Level 4.4mEq/L (3.5-5.2) Chloride Level 105mEq/L (97-108) Carbon Dioxide Level 20mmol/L (18-29) Blood Urea Nitrogen 17mg/dL (8-27) Creatinine 1.05mg/dL (0.57-1.00) Estimat Glomerular Filtration Rate 74mL/min (>59) Glucose Level 111mg/dL (60-99) Calcium Level 9.0mg/dL (8.5-10.1) Magnesium Level 1.9mg/dL (1.6-2.6) Total Bilirubin 0.2mg/dL (0.0-1.2) Aspartate Amino Transf (AST/SGOT) 20U/L (0-50) Alanine Aminotransferase (ALT/SGPT) 12U/L (0-32) Alkaline Phosphatase 107U/L (25-165) Total Protein 6.6g/dL (6.4-8.4) Albumin 3.9g/dL (3.4-5.0) Discharge Medications Discharge Medications Aspirin (Aspirin) 81 Mg Tablet 81 MG PO QAM (Reported) Cholecalciferol (Vitamin D3) (Vitamin D3) 5,000 Unit Capsule 5,000 UNIT PO QAM ( Reported) Cyanocobalamin (Vitamin B-12) (Vitamin B-12) 1,000 Mcg Tablet 1,000 MCG PO QAM ( Reported) Losartan Potassium (Losartan Potassium) 25 Mg Tablet 12.5 MG PO QAM (Reported) Metoprolol Tartrate (Metoprolol Tartrate) 25 Mg Tablet 12.5 MG PO HS (Reported) Omeprazole (Omeprazole) 20 Mg Capsule.dr 20 MG PO QAM (Reported) Simvastatin (Simvastatin) 40 Mg Tablet 40 MG PO HS (Reported) Spironolactone (Spironolactone) 25 Mg Tablet 12.5 MG PO QAM (Reported) Followup Plan Disposition: Home Discharge Diet: No restrictions Discharge Activity: No restrictions Patient Instructions You were hospitalized due to Right obstructive nephrolithiasis with hydronephrosis and underwent successful Cystoscopy and right retrograde pyelogram,Right ureteroscopy and stone basketing and Right stent placement on 06/24. Please follow-up with in 1 week . Please drink plenty of water. Follow-up Provider: Keegan Mcgee DO Follow-up with PCP in: 2 weeks Provider: Katiana Troung MD Follow-up in: 1 week Time spent 35 minutes coordinating discharge and answering questions copies to: Keegan Mcgee DO; Katiana Truong MD, Melaku MD Jun 25, 2017 13:17
--- NOTE | 2017-06-27 11:56 | NUR ---
LATE NOTE ADMIT NOTE FOR 06/23/17 1500 Patient received from the ED at 1430. Rated her pain as 4/10 over her R flank area. Medicated prior to transfer to the floor from the ED. Denies nausea upon admit. Patient is working on her lunch. Denies SOB. Ambulatory. Gait is steady. Oriented to room, call light and bathroom. Care endorsed to Iman Malik RN.
[2017-06-27 14:10] LABS: Stone Color Orange (.)
== END 2017-06-25 11:15 | disposition home or self-care (01) | DRG 669 ==
LOC: SED 08:43 → OSC 13:34
PROVIDERS: ADMIT Internal Medicine; ATTEND Internal Medicine
PROC: 0T768DZ Dilation of Right Ureter with Intraluminal Device, Via Natural or Artificial Opening Endoscopic (ICD-10-PCS; 2017-06-24)
PROC: 0TC68ZZ Extirpation of Matter from Right Ureter, Via Natural or Artificial Opening Endoscopic (ICD-10-PCS; principal; 2017-06-24 11:30)
DX: N13.2 Hydronephrosis with renal and ureteral calculous obstruction (principal); I10 Essential (primary) hypertension; E78.5 Hyperlipidemia, unspecified; I25.10 Atherosclerotic heart disease of native coronary artery without angina pectoris